=== PATIENT | male | born 1960 | race Caucasian/White ===

== ENCOUNTER 2021-10-04 08:36 | Inpatient (IN) | payer BC ==
[2021-10-04 09:14] LABS: BLOOD UREA NITROGEN,BUN 22 mg/dL (7.0-18.0); CARBON DIOXIDE,CO2 25.4 mmol/L (21.0-32.0); CHLORIDE,CL 108 mmol/L (98-107); GLUCOSE RANDOM 116 mg/dL (74-106); SODIUM,NA 141 mmol/L (136-148)
[2021-10-04 09:15] LABS: ESTIMATED GFR 63 mL/min (>60)
[2021-10-04] MEDS ORDERED: Sodium Chloride 0.9% 2.5 ML Syringe FLUSH PRN (12:01)
[2021-10-04] MEDS ORDERED: Albuterol/Ipratropium 3.0-0.5 MG/3 ML Neb Soln NEB PRN (12:01)
[2021-10-04] MEDS ORDERED: Polyethylene Glycol 3350 Powder 17 GM Packet PO PRN (12:01)
[2021-10-04] MEDS ORDERED: Sodium Chloride 0.9% 10 ML Syringe FLUSH PRN (12:01)
[2021-10-04] MEDS ORDERED: Ondansetron 4 MG/2 ML SDV IVPUSH PRN (12:01)
[2021-10-04] MEDS ORDERED: Nicotine 14 MG/24 Hr Patch TRDERM PRN ×2 (12:25→13:00)
[2021-10-04 13:03] LABS: HEMOGLOBIN A1C 6.1 %
[2021-10-04] MEDS: Aspirin 81 MG Tab.Chew PO SCH (13:20)
[2021-10-04] MEDS: Furosemide 40 MG/4 ML VIAL IVPUSH SCH ×2 (13:22→20:03)
[2021-10-04] MEDS: Enoxaparin 40 MG/0.4 ML Syringe SUBCUT SCH (13:22)
[2021-10-05 06:53] LABS: CARBON DIOXIDE,CO2 25.8 mmol/L (21.0-32.0); POTASSIUM,K 3.7 mmol/L (3.5-5.1)
[2021-10-05] MEDS: Furosemide 40 MG/4 ML VIAL IVPUSH SCH ×2 (08:37→20:03)
[2021-10-05] MEDS: Aspirin 81 MG Tab.Chew PO SCH (10:03)
[2021-10-05] MEDS ORDERED: Potassium Chloride 20 MEQ Tab.ER PO ONE (10:28)
[2021-10-05] MEDS: Enoxaparin 40 MG/0.4 ML Syringe SUBCUT SCH (12:52)
[2021-10-05] MEDS: Amiodarone 200 MG Tab PO SCH (14:08)
[2021-10-06 06:42] LABS: POTASSIUM,K 4.4 mmol/L (3.5-5.1)
[2021-10-06] MEDS: Furosemide 40 MG/4 ML VIAL IVPUSH SCH ×2 (08:53→23:40)
[2021-10-06] MEDS: Aspirin 81 MG Tab.Chew PO SCH (09:52)
[2021-10-06] MEDS: Amiodarone 200 MG Tab PO SCH (09:52)
[2021-10-06] MEDS: Lisinopril 10 MG Tab PO SCH (11:55)
[2021-10-06] MEDS: Enoxaparin 40 MG/0.4 ML Syringe SUBCUT SCH (13:52)
[2021-10-07 08:10] LABS: CARBON DIOXIDE,CO2 25.5 mmol/L (21.0-32.0); POTASSIUM,K 4.6 mmol/L (3.5-5.1)
[2021-10-07] MEDS: Aspirin 81 MG Tab.Chew PO SCH (10:26)
[2021-10-07] MEDS: Amiodarone 200 MG Tab PO SCH (10:26)
[2021-10-07] MEDS: Lisinopril 10 MG Tab PO SCH (10:26)
[2021-10-07] MEDS: Furosemide 40 MG/4 ML VIAL IVPUSH SCH (10:27)
== END 2021-10-07 13:00 | disposition home or self-care (01) | DRG 194 ==
LOC: MW.CHFP 08:36 → MW.MS 11:12
PROVIDERS: ADMIT Student in an Organized Health Care Education/Training Program; ATTEND Student in an Organized Health Care Education/Training Program
DX: I50.21 Acute systolic (congestive) heart failure (principal); I47.2 Ventricular tachycardia; R18.8 Other ascites; R79.89 Other specified abnormal findings of blood chemistry; R94.31 Abnormal electrocardiogram [ECG] [EKG]; F17.210 Nicotine dependence, cigarettes, uncomplicated; F15.10 Other stimulant abuse, uncomplicated; Z88.0 Allergy status to penicillin; Z79.899 Other long term (current) drug therapy; Z88.1 Allergy status to other antibiotic agents; Z20.822 Contact with and (suspected) exposure to COVID-19
CPT/HCPCS: 36415; 71046; 71046-26; 76705; 76705-26; 80048; 80053; 80061; 80305-QW; 81003; 83036; 83735; 83880; 84100; 84443; 84484; 85025; 93306; A9270-GY; J1650; J1940; U0002

== ENCOUNTER 2022-04-09 13:22 | Emergency (ER) | payer OTHER, BC ==
[2022-04-09 13:56] LABS: BLOOD UREA NITROGEN,BUN 20 mg/dL (7.0-18.0); CARBON DIOXIDE,CO2 30.1 mmol/L (21.0-32.0); CHLORIDE,CL 101 mmol/L (98-107); GLUCOSE RANDOM 123 mg/dL (74-106); POTASSIUM,K 4.8 mmol/L (3.5-5.1); SODIUM,NA 140 mmol/L (136-148)
[2022-04-09 13:58] LABS: ESTIMATED GFR 69 mL/min (>60)
== END 2022-04-09 19:35 | disposition home or self-care (01) ==
LOC: MW.ED 13:22
DX: S09.90XA Unspecified injury of head, initial encounter (principal); Z88.0 Allergy status to penicillin; Z72.0 Tobacco use; V47.5XXA Car driver injured in collision with fixed or stationary object in traffic accident, initial encounter; Y92.410 Unspecified street and highway as the place of occurrence of the external cause
CPT/HCPCS: 36415; 70450; 70450-26; 71045; 71045-26; 72125; 72125-26; 72170; 72170-26; 80053; 80307; 83735; 85025; 85610; 93005; 99284-25

== ENCOUNTER 2024-01-27 06:24 | Day surgery (SDC) | payer BC ==
[2024-01-27] MEDS ORDERED: ceFAZolin 2 GM in Sodium Chloride 0.9% 50 ML IV ONE (06:30)
[2024-01-27] MEDS ORDERED: dexmedeTOMIDine HCl 200 MCG/2 ML SDV ONE ×2 (07:10→09:32)
[2024-01-27] MEDS ORDERED: Lidocaine 2% 5 ML SDV ONE (07:10)
[2024-01-27] MEDS ORDERED: fentaNYL 100 MCG/2 ML SDV ONE (07:10)
[2024-01-27] MEDS ORDERED: Water For Injection, Sterile 20 ML ONE (07:10)
[2024-01-27] MEDS ORDERED: Midazolam 1 MG/ML 2 ML SDV ONE (07:10)
[2024-01-27] MEDS ORDERED: Propofol 200 MG/20 ML SDV ONE (07:10)
[2024-01-27] MEDS ORDERED: Rocuronium Bromide 50 MG/5 ML Syringe ONE ×2 (07:11→09:39)
[2024-01-27] MEDS ORDERED: Ropivacaine 0.5% 5 MG/ML 30 ML SDV ONE (07:14)
[2024-01-27] MEDS ORDERED: Bupivacaine 0.25% 30 ML SDV ONE (07:14)
[2024-01-27] MEDS ORDERED: ceFAZolin 1 GM Vial ONE ×3 (07:17→10:30)
[2024-01-27] MEDS ORDERED: Bupivacaine 0.5% 30 ML SDV ONE (07:17)
[2024-01-27] MEDS: Lactated Ringers 1,000 ML IV SCH (07:23)
[2024-01-27] MEDS ORDERED: droPERidol 5 MG/2 ML SDV IVPUSH PRN (08:20)
[2024-01-27] MEDS ORDERED: Albuterol 0.083% 2.5 MG/3 ML Neb Soln NEB PRN (08:20)
[2024-01-27] MEDS ORDERED: Morphine 2 MG/ML SYRINGE IVPUSH PRN (08:20)
[2024-01-27] MEDS ORDERED: Metoclopramide 10 MG/2 ML SDV IVPUSH PRN (08:20)
[2024-01-27] MEDS ORDERED: HYDROmorphone 1 MG/ML Syringe IVPUSH PRN (08:20)
[2024-01-27] MEDS ORDERED: fentaNYL 50 MCG/ML SDV IVPUSH PRN (08:20)
[2024-01-27] MEDS ORDERED: Naloxone 0.4 MG/ML SDV IVPUSH PRN (08:20)
[2024-01-27] MEDS ORDERED: Ondansetron 4 MG/2 ML SDV IVPUSH PRN (08:20)
[2024-01-27] MEDS ORDERED: Phenylephrine HCl In 0.9% NaCl 1 MG/10 ML Syringe IVPUSH PRN (08:20)
[2024-01-27] MEDS ORDERED: Dexamethasone 4 MG/ML 5 ML MDV ONE (09:32)
[2024-01-27] MEDS ORDERED: Sugammadex Sodium 200 MG/2 ML VIAL IV ONE (09:32)
[2024-01-27] MEDS ORDERED: Ondansetron 4 MG/2 ML SDV ONE (09:32)
[2024-01-27] MEDS ORDERED: Ketorolac 30 MG/ML SDV ONE (09:33)
[2024-01-27] MEDS ORDERED: Phenylephrine HCl In 0.9% NaCl 1 MG/10 ML Syringe ONE (09:51)
[2024-01-27] MEDS ORDERED: ePHEDrine 50 MG/ML SDV ONE (09:55)
[2024-01-27] MEDS ORDERED: Morphine 4 MG/ML Syringe IVPUSH PRN (11:39)
[2024-01-27] MEDS ORDERED: Acetaminophen/HYDROcodone 325-5 MG Tab PO PRN (11:39)
[2024-01-27] MEDS ORDERED: Lactated Ringers 1,000 ML IV SCH (11:45)
== END 2024-01-27 13:10 | disposition home or self-care (01) ==
LOC: MW.SDS 06:24
PROVIDERS: ATTEND Surgery
DX: K40.30 Unilateral inguinal hernia, with obstruction, without gangrene, not specified as recurrent (principal); I25.10 Atherosclerotic heart disease of native coronary artery without angina pectoris; I50.20 Unspecified systolic (congestive) heart failure; F17.210 Nicotine dependence, cigarettes, uncomplicated; Z88.0 Allergy status to penicillin; Z88.1 Allergy status to other antibiotic agents; Z79.82 Long term (current) use of aspirin; Z79.899 Other long term (current) drug therapy
CPT/HCPCS: 49507; 64486; C1781; J0131; J0665; J0690; J1100; J1885; J2250; J2371; J2405; J2704; J2795; J3010; J3490; J7120